=== PATIENT | male | born 2000 | race Caucasian/White ===

== ENCOUNTER → 2018-02-03 | Outpatient (CLI) | payer BC ==
[2018-02-03 18:42] LABS: BASO % 0.2 %; BASO ABS # 0.02 K/uL (0-0.2); EOS ABS # 0.11 K/uL (0-0.5); HEMATOCRIT 40.8 % (42-52); IG# 0.02 K/uL (0.00-0.02); LYMPH % 16.7 %; LYMPH ABS # 1.76 K/uL (1.2-3.4); MEAN CELL VOLUME 87.2 fL (80-100); MEAN CORPUSCULAR HEMOGLOBIN 32.1 pg (25-34); MEAN CORPUSCULAR HGB CONC 36.8 g/dl (32-36); MEAN PLATELET VOLUME 8.4 fL (7.4-10.4); MONO % 5.7 %; NEUT % 76.2 %; NEUT ABS # 8.04 K/uL (1.4-6.5); PLATELET COUNT 216 K/uL (130-400); RED CELL DISTRIBUTION WIDTH CV 12.3 % (11.5-14.5); RED CELL DISTRIBUTION WIDTH SD 39.3 fL (36.4-46.3); WHITE BLOOD COUNT 10.55 K/uL (4.8-10.8)
[2018-02-03 18:51] LABS: PTT PATIENT 29.7 SECONDS (21.0-31.0)
[2018-02-03 19:04] LABS: BLOOD UREA NITROGEN 16 mg/dl (7-18); CALCIUM 9.1 mg/dl (8.5-10.1); CARBON DIOXIDE 29 mmol/L (21-32); CREATININE 0.91 mg/dl (0.60-1.40); GLUCOSE 110 mg/dl (70-99); POTASSIUM 3.8 mmol/L (3.5-5.1); SODIUM 136 mmol/L (136-145)
== END | disposition home or self-care (01) ==
LOC: C.LAB 18:18
PROVIDERS: ATTEND Otolaryngology
DX: S02.2XXA Fracture of nasal bones, initial encounter for closed fracture (principal); X58.XXXA Exposure to other specified factors, initial encounter

== ENCOUNTER 2018-02-14 20:33 | Emergency (ER) | payer BC ==
[~2018-02-14] VITALS: Ht 177.8 cm; Wt 61.6 kg
[2018-02-14 20:38] VITALS: TEMP 36.6; Ht 177.8 cm; Wt 61.6 kg
[2018-02-14] MEDS ORDERED: SULF800T23 PO (21:00)
[2018-02-14] MEDS ORDERED: SEPTRA DS HOME PACK 1 EA VIAL PO ONE (21:00)
[2018-02-14] MEDS ORDERED: CEPH500C PO (21:00)
[2018-02-14] MEDS ORDERED: BACITRACIN OINT 15 GM TUBE EXT ONE (21:00)
[2018-02-14] MEDS ORDERED: CEPHALEXIN 500MG HOME PACK 1 EA BTL PO ONE (21:00)
[2018-02-14 21:15] VITALS: BP 122/84; PULSE 95; O2SAT 97
--- NOTE | 2018-02-14 23:57 | EMERGENCY ROOM VISIT NOTE ---
History First contact with patient: 20:43 Chief Complaint: OTHER COMPLAINT Stated Complaint: PAIN NEAR BACK SIDE,BUMP History of Present Illness The patient is a 17 year old male who presents to the Emergency Room with complaints of a painful lump on his right buttock. The patient reports that it started to swell 2 days ago. He denies any drainage. He also denies any prior history of skin infections or pilonidal abscess. He rates his discomfort an 8 out of 10. Review of Systems 10 system review was performed and was negative except for pertinent positives and negatives as indicated in history of present illness Past Medical/Surgical History Medical Problems: (1) No significant past medical history Surgical Problems: (1) No history of previous surgery Family History Unremarkable Social History Smoking Status: Never Smoker Alcohol Use: occasionally Marital Status: single Occupation Status: [employer] student Current/Historical Medications Scheduled Cephalexin Monohydrate (Keflex), 500 MG PO QID Sulfa/Trimethoprim (Bactrim Ds 800MG/160MG), 1 TAB PO BID Physical Exam Vital Signs Date Time Temp Pulse Resp B/P (MAP) Pulse Ox O2 Delivery O2 Flow Rate FiO2 02/14/18 21:15 95 18 122/84 97 02/14/18 20:38 36.6 95 18 122/84 97 Room Air Physical Exam CONSTITUTIONAL: Healthy and well nourished. HEENT: Normocephalic, atraumatic. Pupils equal, round and reactive. NECK: Full active range of motion without discomfort. MUSCULOSKELETAL: Full range of motion of all joints without discomfort. INTEGUMENTARY: Examination shows a marbled sized area of induration of the right upper buttock near the gluteal cleft. He has no induration or tenderness to palpation through the pilonidal region. There is a very small pustule overriding this area. No underlying fluctuance. NEUROLOGIC: No focal neurologic deficits noted. Medical Decision & Procedures Medications Administered Medications (Trade) Dose Ordered Sig/Kamala Route Start Time Stop Time Status Last Admin Dose Admin Trimethoprim/ Sulfamethoxazole (Sulfameth/ Trimeth Ds 800/ 160MG Home Pack) 1 homepack UD ONCE PO 02/14/18 21:00 02/14/18 21:01 DC 02/14/18 21:09 1 HOMEPACK Cephalexin Monohydrate (Keflex 500MG Home Pack) 1 homepack NOW ONCE PO 02/14/18 21:00 02/14/18 21:01 DC 02/14/18 21:09 1 HOMEPACK Bacitracin (Bacitracin Oint) 1 appln NOW ONCE EXT 02/14/18 21:00 02/14/18 21:01 DC 02/14/18 21:09 1 APPLN ED Course Patient history and physical exam were performed. Nurse's notes were reviewed. Vital signs were reviewed and were normal. The patient was advised that the wound is not amenable for I&D at this time. He was encouraged to apply an ointment and bandage, along with a warm moist compress to keep the area soft and hopefully promote further drainage. The patient was dispensed home packs, and provided prescriptions for Keflex and Bactrim DS. He was instructed to return to the emergency department for any progressively worsening swelling, pain or fever. The patient voiced understanding of all discharge instructions, was happy with plan of care, refused any analgesics while in the emergency department, and rated his discomfort a 6 out of 10 at the conclusion of my exam. Medical Decision Medication Reconcilliation Current Medication List: was personally reviewed by me Blood Pressure Screening Patient's blood pressure: Normal blood pressure Impression Primary Impression: Abscess of right buttock Departure Information Dispostion Home / Self-Care Condition GOOD Prescriptions Sulfa/Trimethoprim (Bactrim Ds 800MG/160MG) Tab 1 TAB PO BID for 7 Days, #14 TAB Prov: Joel Multani PA 02/14/18 Cephalexin Monohydrate (Keflex) 500 Mg Cap 500 MG PO QID for 7 Days, #28 CAP Prov: Joel Multani PA 02/14/18 Forms HOME CARE DOCUMENTATION FORM, IMPORTANT VISIT INFORMATION Patient Instructions My [facility] Additional Instructions Complete all Keflex and Bactrim DS antibiotics as prescribed. Keep area covered with in ointment and dressing to help promote drainage. You may also apply a warm moist compress for additional relief. Ibuprofen 800 mg and/or Tylenol 1000 mg every 8 hours. You may also alternate these medications for more effective pain relief: Ibuprofen --4 HRS--> Tylenol --4 HRS--> ibuprofen --4 HRS--> Tylenol .... Return to the emergency department for any progressively worsening swelling, pain or fever.
== END 2018-02-14 21:16 | disposition home or self-care (01) ==
LOC: C.EDB 20:35 → C.EDD 21:16
DX: L02.31 Cutaneous abscess of buttock (principal)